=== PATIENT | female | born 1960 | race Hispanic/Latino ===

== ENCOUNTER 2016-12-03 15:30 | Emergency (ER) | payer OTHER, BC ==
[2016-12-03 16:00] VITALS: BP 154/88; PULSE 98; RESP 18; TEMP 98.2; O2SAT 96
[2016-12-03 16:01] VITALS: BMI 28.3
--- NOTE | 2016-12-03 16:34 | ED PDOC ---
Arrival/HPI - General Chief Complaint: Abnormal Skin Integrity Time Seen by Provider: 12/03/16 16:30 Historian: Patient - History of Present Illness Narrative History of Present Illness (Text): 12/03/16 16:30 This 56 yo female presents to this ED c/o left facial rash x 2 days. Patient noted a tingling / burning sensation prior onset of rash. Denies vision changes or other complains. Time/Duration: Other (2 days) Context: Home Past Medical History - Provider Review Nursing Documentation Reviewed: Yes - Infectious Disease Hx of Infectious Diseases: None - Cardiac Hx Cardiac Disorders: No - Pulmonary Hx Respiratory Disorders: No - Neurological Hx Neurological Disorder: No - HEENT Hx HEENT Disorder: No - Renal Hx Renal Disorder: No - Endocrine/Metabolic Hx Endocrine Disorders: Yes Hx Diabetes Mellitus Type 2: Yes - Hematological/Oncological Hx Blood Disorders: Yes Hx Cancer: Yes (colon) - Integumentary Hx Dermatological Disorder: Yes Other/Comment: RIGHT GROIN SKIN LESION GRANULOMA - Musculoskeletal/Rheumatological Hx Musculoskeletal Disorders: No - Gastrointestinal Hx Gastrointestinal Disorders: No - Genitourinary/Gynecological Hx Genitourinary Disorders: No - Psychiatric Hx Psychophysiologic Disorder: No Hx Substance Use: No - Surgical History Hx Hysterectomy: Yes Other/Comment: Colon Resection 6 yrs - Anesthesia Hx Anesthesia: No Family/Social History - Physician Review Nursing Documentation Reviewed: Yes Family/Social History: No Known Family HX Smoking Status: Never Smoked Hx Alcohol Use: No Hx Substance Use: No Allergies/Home Meds Allergies/Adverse Reactions: Allergies latex Allergy (Verified 12/03/16 16:05) RASH Home Medications: Home Meds Medication Instructions Recorded Confirmed Glimepiride 2 mg PO BID 07/06/15 12/03/16 Metformin HCl [Glucophage] 1 gm PO BID 07/06/15 12/03/16 Valsartan [Diovan] 160 mg PO DAILY 07/06/15 12/03/16 Review of Systems - Review of Systems Constitutional: Normal. absent: Fatigue, Weight Change, Fevers Eyes: Normal ENT: Normal Respiratory: Normal Cardiovascular: Normal Gastrointestinal: Normal Genitourinary Female: Normal Musculoskeletal: Normal Skin: Rash, Other (see HPI) Neurological: Normal Endocrine: Normal Hemo/Lymphatic: Normal Psychiatric: Normal Physical Exam Vital Signs Temp Pulse Resp BP Pulse Ox 12/03/16 16:00 98.2 F 98 H 18 154/88 H 96 Temperature: Afebrile Blood Pressure: Normal Pulse: Regular Respiratory Rate: Normal Appearance: Positive for: Well-Appearing, Non-Toxic, Comfortable Pain Distress: None Mental Status: Positive for: Alert and Oriented X 3 - Systems Exam Head: Present: Atraumatic, Normocephalic, Other ((+) vesicular rash observed left temporal area from scapl to lateral temp of face. Eyes are not involved. Rash is vesicualr) Pupils: Present: PERRL, Other (no dendritic lesion) Extroacular Muscles: Present: EOMI. No: Entrapment Conjunctiva: Present: Normal Ears: Present: Normal, NORMAL TM, Normal Canal. No: Erythema, TM Bulging, TM Perf Mouth: Present: Moist Mucous Membranes, Normal Lips, Normal Tounge, Normal Teeth. No: Drooling, Trismus Pharnyx: Present: Normal. No: ERYTHEMA, EXUDATE, TONSILS ENLARGED Nose (External): Present: Atraumatic, Other (No leija's sign). No: Lesions Nose (Internal): Present: Normal Inspection Neck: Present: Normal Range of Motion. No: Meningeal Signs, MIDLINE TENDERNESS Respiratory/Chest: Present: Clear to Auscultation, Good Air Exchange. No: Respiratory Distress, Accessory Muscle Use Cardiovascular: Present: Regular Rate and Rhythm, Normal S1, S2. No: Murmurs Abdomen: Present: Normal Bowel Sounds. No: Tenderness, Distention, Peritoneal Signs Back: Present: Normal Inspection. No: CVA Tenderness Upper Extremity: Present: Normal Inspection, Normal ROM, NORMAL PULSES, Neurovascularly Intact, Capillary Refill < 2s. No: Cyanosis, Edema Lower Extremity: Present: Normal Inspection, Normal ROM, Neurovascularly Intact , Capillary Refill < 2 s. No: Edema Neurological: Present: GCS=15, CN II-XII Intact, Speech Normal, Motor Func Grossly Intact, Normal Sensory Function, Normal Cerebellar Funct, Gait Normal Skin: Present: Warm, Dry, Normal Color. No: Rashes Psychiatric: Present: Alert, Oriented x 3 Medical Decision Making ED Course and Treatment: 12/03/16 16:50 Dr. Pan ED physician came to see patient. He agrees with plan. 12/03/16 17:00 Patient denies vision changes, or eye pain. Patient was recommended to f/u legal advisor tomorrow, and to return to ED if symptoms worsen. Re-evaluation Time: 16:58 Reassessment Condition: Re-examined, Improved - Medication Orders Current Medication Orders: Discontinued Medications Valacyclovir HCl (Valtrex) 1 gm PO STAT STA PRN Reason: Protocol Stop: 12/03/16 16:37 Last Admin: 12/03/16 16:46 Dose: 1 gm Disposition/Present on Arrival - Present on Arrival Any Indicators Present on Arrival: No History of DVT/PE: No History of Uncontrolled Diabetes: No Urinary Catheter: No History of Decub. Ulcer: No History Surgical Site Infection Following: None - Disposition Have Diagnosis and Disposition been Completed?: Yes Diagnosis: Herpes zoster Disposition: HOME/ ROUTINE Disposition Time: 16:59 Patient Plan: Discharge Condition: GOOD Discharge Instructions (ExitCare): Shingles (ED) Additional Instructions: Call private doctor for follow up visit in 1-2 days. Also call legal advisor for revaluation in 1-2 days. Take medication with food. Return to emergency if symptoms worsen Prescriptions: oxyCODONE/Acetaminophen [Percocet 5/325 mg Tab] 1 ea PO TID PRN #12 tab PRN Reason: Pain, Severe (8-10) Valacyclovir HCl [Valtrex] 1 gm PO Q8H #21 tablet Referrals: Deya Lucia MD [Primary Care Provider] - Follow up with primary Jamshid Austin MD [Staff Provider] - Follow up with primary Forms: [facility] (Khmer), WORK NOTE
== END 2016-12-03 17:10 | disposition home or self-care (01) ==
LOC: ED 15:30
DX: B02.9 Zoster without complications (principal)

== ENCOUNTER 2017-08-14 10:55 | Day surgery (SDC) | payer OTHER, BC ==
[2017-08-07 10:46] VITALS: BMI 28.6
[2017-08-14 11:35] LABS: EOS # 1.3 (0.0-0.7); EOS % 2.9 % (1.5-5.0); HEMOGLOBIN 11.1 g/dL (12.0-16.0); LYMPH # 2.1 (1.2-3.4); LYMPH % 4.7 % (22.0-35.0); MEAN CORPUSCULAR HEMOGLOBIN 32.1 pg (25.0-35.0); MEAN CORPUSCULAR HGB CONC 32.7 g/dl (31.0-37.0); MEAN PLATELET VOLUME 10.1 fl (7.0-11.0); MONO # 1.9 (0.1-0.6); MONO % 4.3 % (1.0-6.0); PLATELET COUNT 526 10^3/uL (120.0-450.0); RBC 3.46 10^6/uL (3.5-6.1); RED CELL DISTRIBUTION WIDTH 14.3 % (11.5-14.5)
[2017-08-14 11:40] LABS: WHITE BLOOD COUNT 45.4 10^3/ul (4.5-11.0)
[2017-08-14 11:42] LABS: BLOOD UREA NITROGEN 27 mg/dL (7-21); CALCIUM 10.7 mg/dL (8.4-10.5); GFR AFRICAN-AMERICAN > 60; GFR NON-AFRICAN AMERICAN > 60
[2017-08-14 11:43] LABS: INR 0.99 (0.93-1.08); PARTIAL THROMBOPLASTIN TIME 28.9 Seconds (25.1-36.5); PROTHROMBIN TIME 11.4 SECONDS (9.4-12.5)
[2017-08-14 12:25] LABS: ATYPICAL LYMPHOCYTE 2 % (0.0-0.0); BAND 5 % (0-2); BASOPHIL 2 % (0.0-1.0); EOSINOPHIL 5 % (0.0-3.0); LYMPHOCYTE 5 % (22.0-35.0); METAMYELOCYTE 2 %; MONOCYTE 7 % (1.0-6.0); NEUTROPHIL 67 % (50.0-70.0)
[2017-08-14 12:26] LABS: MYELOCYTE 5 %
[2017-08-14] MEDS ORDERED: Midazolam 2 MG/2 ML VIAL ONE (14:00)
[2017-08-14] MEDS ORDERED: Lidocaine 1% Inj (20ml) ONE (14:00)
[2017-08-14] MEDS ORDERED: Oxycodone/Acetaminophen 5/325 mg Tab PO PRN (15:39)
[2017-08-14] MEDS ORDERED: Sodium Chloride 0.45% 1,000 ML IV SCH (15:45)
[2017-08-14 16:42] VITALS: BP 118/66; PULSE 91; RESP 18; TEMP 98.3; O2SAT 97
--- NOTE | 2017-08-14 20:29 | CT ---
PROCEDURE: CT guided bone marrow aspiration and biopsy. HISTORY: Recently diagnosed CML. Needs bone marrow biopsy and aspiration PHYSICIAN(S): Ronni Wilcox MD. TECHNIQUE: The relative risks and indications of the procedure were explained to the patient and consent obtained. The patient was placed prone on the CT scanner and preliminary images through the pelvis obtained. Conscious sedation and monitoring were provided throughout the procedure by a nurse. The right posterior superior iliac spine was selected for biopsy. The areas prepped and draped usual sterile fashion. 1 percent xylocaine was used to anesthetize the skin and soft tissues. And on control needle was advanced to the right posterior superior iliac spine. Its position was confirmed with CT. The needle was advanced to the cortex and an aspiration performed. Next a long core biopsy was obtained with the on control needle. Slides were prepared by Dr. Powers. IMPRESSION: 1. CT-guided bone marrow aspiration and biopsy as described above.
== END 2017-08-14 17:33 | disposition home or self-care (01) ==
LOC: SDS 10:55
PROVIDERS: ATTEND Radiology Vascular & Interventional Radiology
DX: C92.10 Chronic myeloid leukemia, BCR/ABL-positive, not having achieved remission (principal)
CPT/HCPCS: 36415; 38221; 80048; 85025; 85610; 85730; J2250; J2405; J3010; J7030

== ENCOUNTER 2018-05-28 16:21 | Outpatient (CLI) | payer OTHER, BC | END 2018-05-28 16:22 | disposition home or self-care (01) | LOC: LAB 16:21 ==

== ENCOUNTER 2018-06-27 17:48 | Outpatient (CLI) | payer OTHER, BC | END 2018-06-27 17:49 | disposition home or self-care (01) | LOC: OPLAB 17:48 ==

== ENCOUNTER 2018-08-01 17:06 | Outpatient (CLI) | payer OTHER, BC | END 2018-08-01 17:07 | disposition home or self-care (01) | LOC: OPLAB 17:06 ==

== ENCOUNTER 2018-08-20 19:55 | Emergency (ER) | payer OTHER, BC ==
[2018-08-20 20:06] VITALS: BMI 29.1
[2018-08-20 20:07] VITALS: TEMP 98.7
[2018-08-20] MEDS ORDERED: Sodium Chloride 0.9% 1,000 ML IV STA (20:53)
[2018-08-20] MEDS ORDERED: Morphine 4 mg/ml ISec IVP STA (20:55)
[2018-08-20 21:34] LABS: BASO # 0.03 K/mm3 (0.0-2.0); BASO % 0.5 % (0.0-3.0); EOS # 0.5 (0.0-0.7); EOS % 8.1 % (1.5-5.0); HEMOGLOBIN 11.9 g/dL (12.0-16.0); LYMPH # 1.5 (1.2-3.4); MEAN CELL VOLUME 99.2 fl (80.0-105.0); MEAN CORPUSCULAR HEMOGLOBIN 31.8 pg (25.0-35.0); MEAN CORPUSCULAR HGB CONC 32.1 g/dl (31.0-37.0); MEAN PLATELET VOLUME 9.2 fl (7.0-11.0); MONO # 0.5 (0.1-0.6); MONO % 8.5 % (1.0-6.0); RBC 3.74 10^6/uL (3.5-6.1); RED CELL DISTRIBUTION WIDTH 12.9 % (11.5-14.5); WHITE BLOOD COUNT 5.7 10^3/uL (4.5-11.0)
[2018-08-20 21:36] LABS: PH,URINE 6.5 (4.7-8.0); URINE BILIRUBIN NEGATIVE (NEGATIVE); URINE BLOOD NEGATIVE (NEGATIVE); URINE GLUCOSE (UA) NEGATIVE (NEGATIVE); URINE LEUKOCYTE ESTERASE NEGATIVE Leu/uL (NEGATIVE); URINE PROTEIN NEGATIVE mg/dL (<30 mg/dL); URINE UROBILINOGEN 0.2 E.U./dL (<1 E.U./dL)
[2018-08-20 21:38] LABS: URINE APPEARANCE CLEAR (CLEAR); URINE COLOR LIGHT YELLOW (YELLOW)
[2018-08-20 21:41] LABS: INR 1.04; PARTIAL THROMBOPLASTIN TIME 34.1 Seconds (26.9-38.3); PROTHROMBIN TIME 11.5 SECONDS (9.4-12.5)
[2018-08-20 21:45] LABS: ALB/GLOB RATIO 1.2 (1.1-1.8); ALBUMIN 4.4 g/dL (3.0-4.8); ALT/SGPT 26 U/L (7-56); AST/SGOT 42 U/L (14-36); BLOOD UREA NITROGEN 21 mg/dL (7-21); CALCIUM 10.2 mg/dL (8.4-10.5); GFR NON-AFRICAN AMERICAN 57
--- NOTE | 2018-08-20 22:01 | ED PDOC ---
Arrival/HPI <Lul Crenshaw - Last Filed: 08/20/18 22:29> - History of Present Illness Narrative History of Present Illness (Text): 08/20/18 20:53 A 58 year old female, whose past medical history includes diabetes, hypertension, and kidney stones, presents to the emergency department complaining of right flank pain radiating to right groin since a few days ago. Patient reports she had kidney stones a few years ago and is currently getting chemo therapy for CML. Patient states she follows up with Dr. Dave. Patient denies any fever, chills, nausea, vomiting, urinary output changes, belly pain, or any other complaints. PMD: Dr. Lucia Improvement Auditor: Dr. Dave Time/Duration: Other (a few days ago) Symptom Onset: Gradual Symptom Course: Unchanged Activities at Onset: Light Context: Home <Ines Romeo PA-C - Last Filed: 08/21/18 00:56> - General Chief Complaint: Back Pain Time Seen by Provider: 08/20/18 19:58 Past Medical History - Provider Review Nursing Documentation Reviewed: Yes - Infectious Disease Hx of Infectious Diseases: None - Cardiac Hx Cardiac Disorders: Yes Hx Hypertension: Yes - Pulmonary Hx Respiratory Disorders: No - Neurological Hx Paralysis: No - HEENT Hx HEENT Disorder: Yes Hx Cataracts: Yes (RIGHT EYE CATARACT(HAD SX BUT DOESNT SEE WELL)) - Renal Hx Renal Disorder: No - Endocrine/Metabolic Hx Diabetes Mellitus Type 2: Yes - Hematological/Oncological Hx Blood Disorders: Yes Hx Blood Transfusions: Yes Hx Blood Transfusion Reaction: Yes (2 UNITS 9 YRS AGO) Hx Leukemia: Yes (2018) - Integumentary Hx Dermatological Disorder: Yes Other/Comment: RIGHT GROIN SKIN LESION GRANULOMA - Musculoskeletal/Rheumatological Hx Musculoskeletal Disorders: No - Gastrointestinal Hx Gastrointestinal Disorders: Yes Other/Comment: HX. COLON CANCER S/P COLECTOMY - Genitourinary/Gynecological Hx Genitourinary Disorders: Yes Other/Comment: JACKIE - Psychiatric Hx Emotional Abuse: No Hx Physical Abuse: No Hx Substance Use: No - Surgical History Hx Cataract Extraction: Yes (RIGHT EYE BUT NEEDS 2ND SURGERY PER PT) Hx Hysterectomy: Yes Other/Comment: Colon Resection - Anesthesia Hx Anesthesia Reactions: No Hx Malignant Hyperthermia: No - Suicidal Assessment Feels Threatened In Home Enviroment: No <Ines Romeo PA-C - Last Filed: 08/21/18 00:56> Family/Social History - Physician Review Nursing Documentation Reviewed: Yes Family/Social History: No Known Family HX Smoking Status: Never Smoked Hx Alcohol Use: No (WEEKENDS) Hx Substance Use: No <Ines Romeo PA-C - Last Filed: 08/21/18 00:56> Allergies/Home Meds <Lul Crenshaw - Last Filed: 08/20/18 22:29> <Ines Romeo PA-C - Last Filed: 08/21/18 00:56> Allergies/Adverse Reactions: Allergies latex Allergy (Severe, Verified 08/20/18 20:06) RASH Home Medications: Home Meds Medication Instructions Recorded Confirmed Glimepiride 4 mg PO BID 07/06/15 08/20/18 Metformin HCl [Glucophage] 1 gm PO BID 07/06/15 08/20/18 Multivitamin/Iron/Folic Acid 1 tab PO DAILY 08/09/17 08/20/18 [Centrum Adults Tablet] Losartan/Hydrochlorothiazide 1 tab PO DAILY 08/20/18 08/20/18 [Losartan-Hctz 100-25 mg Tab] Review of Systems - Physician Review All systems were reviewed & negative as marked: Yes - Review of Systems Constitutional: absent: Fevers, Other (chills) Gastrointestinal: Abdominal Pain (right flank pain radiating to right groin; no belly pain). absent: Nausea, Vomiting Genitourinary Female: absent: Urine Output Changes <Ines Romeo PA-C - Last Filed: 08/21/18 00:56> Physical Exam Vital Signs Temp Pulse Resp BP Pulse Ox 08/20/18 20:06 98.7 F 92 H 18 192/103 H 100 <Lul Crenshaw - Last Filed: 08/20/18 22:29> Vital Signs Reviewed: Yes Vital Signs Temp Pulse Resp BP Pulse Ox 08/20/18 20:06 98.7 F 92 H 18 192/103 H 100 Temperature: Afebrile Blood Pressure: Hypertensive Pulse: Tachycardic Respiratory Rate: Normal Appearance: Positive for: Well-Appearing, Non-Toxic, Comfortable Mental Status: Positive for: Alert and Oriented X 3 - Systems Exam Head: Present: Atraumatic, Normocephalic Pupils: Present: PERRL Extroacular Muscles: Present: EOMI Conjunctiva: Present: Normal Mouth: Present: Moist Mucous Membranes Neck: Present: Normal Range of Motion Respiratory/Chest: Present: Clear to Auscultation, Good Air Exchange. No: Respiratory Distress, Accessory Muscle Use Cardiovascular: Present: Regular Rate and Rhythm, Normal S1, S2. No: Murmurs Abdomen: No: Tenderness, Distention, Peritoneal Signs, Rebound, Guarding Back: Present: Normal Inspection, CVA Tenderness (mild right CVA tenderness) Upper Extremity: Present: Normal Inspection. No: Cyanosis, Edema Lower Extremity: Present: Normal Inspection. No: Edema Neurological: Present: GCS=15, CN II-XII Intact, Speech Normal, Motor Func Grossly Intact, Normal Sensory Function, Gait Normal Skin: Present: Warm, Dry, Normal Color. No: Rashes Psychiatric: Present: Alert, Oriented x 3, Normal Insight, Normal Concentration <Ines Romeo PA-C - Last Filed: 08/21/18 00:56> Medical Decision Making - Lab Interpretations Lab Results: PT 11.5 SECONDS (9.4-12.5) 08/20/18 21:20 INR 1.04 08/20/18 21:20 APTT 34.1 Seconds (26.9-38.3) 08/20/18 21:20 Total Bilirubin 0.3 mg/dL (0.2-1.3) 08/20/18 21:20 AST 42 U/L (14-36) H 08/20/18 21:20 ALT 26 U/L (7-56) 08/20/18 21:20 Alkaline Phosphatase 125 U/L (38-126) 08/20/18 21:20 Total Protein 8.2 g/dL (5.8-8.3) 08/20/18 21:20 Albumin 4.4 g/dL (3.0-4.8) 08/20/18 21:20 Globulin 3.8 gm/dL 08/20/18 21:20 Albumin/Globulin Ratio 1.2 (1.1-1.8) 08/20/18 21:20 Urine Color Light yellow (YELLOW) 08/20/18 21:20 Urine Appearance Clear (CLEAR) 08/20/18 21:20 Urine pH 6.5 (4.7-8.0) 08/20/18 21:20 Ur Specific [place] <= 1.005 (1.005-1.035) 08/20/18 21:20 Urine Protein Negative mg/dL (<30 mg/dL) 08/20/18 21:20 Urine Glucose (UA) Negative mg/dL (NEGATIVE) 08/20/18 21:20 Urine Ketones Negative mg/dL (NEGATIVE) 08/20/18 21:20 Urine Blood Negative (NEGATIVE) 08/20/18 21:20 Urine Nitrate Negative (NEGATIVE) 08/20/18 21:20 Urine Bilirubin Negative (NEGATIVE) 08/20/18 21:20 Urine Urobilinogen 0.2 E.U./dL (<1 E.U./dL) 08/20/18 21:20 Ur Leukocyte Esterase Negative [place]/uL (NEGATIVE) 08/20/18 21:20 - RAD Interpretation Radiology Orders: 08/20/18 20:59 ABDOMEN & PELVIS [ABD & PELVIS W/O PO OR IV CONT] [CT] Stat - Medication Orders Current Medication Orders: Sodium Chloride (Sodium Chloride 0.9%) 1,000 mls @ 500 mls/hr IV .Q2H STA Stop: 08/20/18 22:52 Last Admin: 08/20/18 21:42 Dose: 500 mls/hr eMAR Start Stop Document 08/20/18 21:42 CD (Rec: 08/20/18 21:43 [facility] Intravenous Solution Start Date 08/20/18 Start Time 21:42 End Date 08/20/18 End time 23:42 Total Infusion Time 120 Discontinued Medications Morphine Sulfate (Morphine) 4 mg IVP STAT STA Stop: 08/20/18 20:56 Last Admin: 08/20/18 21:34 Dose: 4 mg MAR Pain Assessment Document 08/20/18 21:34 CD (Rec: 08/20/18 21:35 CD [facility]) Pain Reassessment Is this a pain reassessment? No Sleep Is patient sleeping during reassessment? No Presence of Pain Presence of Pain Yes Pain Scale Used Protocol: PSCALES Pain Scale Used Numeric Location Pain Location Body Site Back Description Intensity of Pain at present 6 Pain Behavior Irritability IVP Administration Document 08/20/18 21:34 CD (Rec: 08/20/18 21:35 CD [facility]) Charges for Administration # of IVP Administrations 1 Ondansetron HCl (Zofran Inj) 4 mg IVP STAT STA Stop: 08/20/18 20:54 Last Admin: 08/20/18 21:34 Dose: 4 mg IVP Administration Document 08/20/18 21:34 CD (Rec: 08/20/18 21:34 CD [id number]) Charges for Administration # of IVP Administrations 1 <Lul Crenshaw - Last Filed: 08/20/18 22:29> ED Course and Treatment: 08/20/18 20:53 Impression: 58 year old female presenting to the emergency room complaining of right flank pain. Plan: -- CT of abdomen and pelvis -- Morphine -- Zofran -- IV fluids -- Urine culture -- Reassess and disposition Prior Visits: Notes and results from previous visits were reviewed. Progress Notes: 08/20/18 20:[address] Dave who agrees with current plan and wants to rule out kidney stones. Labs results d/w the patient, she is still pending CT. 08/20/18 23:45 On reevaluation, patient reports improvement of symptoms, denies any nausea. On exam, patient remains awake alert and oriented 3 in no acute distress. Abdomen soft and nontender. CT results d/w the patient, advised that she does not have a stone in the R urinary tract and duodenitis was seen on CT. Of note, patient's bp is still noted to be elevated at 188/93, she reports that she took her bp medication this AM. Given pepcid IV and clonidine PO. Otherwise the patient feels comfortable going home. She is smiling, is cheerful and in good spirits. Advised to follow up with Dr. Dave especially regarding her bp and CT results in 1-2 days without fail. Advised to take medication as prescribed. Return to the emergency room at any time for any new or worsening symptoms. Patient states she fully agrees with and understands discharge instructions. States that she agrees with the plan and disposition. Verbalized and repeated discharge instructions and plan. I have given the patient opportunity to ask any additional questions. - Lab Interpretations Lab Results: PT 11.5 SECONDS (9.4-12.5) 08/20/18 21:20 INR 1.04 08/20/18 21:20 APTT 34.1 Seconds (26.9-38.3) 08/20/18 21:20 Total Bilirubin 0.3 mg/dL (0.2-1.3) 08/20/18 21:20 AST 42 U/L (14-36) H 08/20/18 21:20 ALT 26 U/L (7-56) 08/20/18 21:20 Alkaline Phosphatase 125 U/L (38-126) 08/20/18 21:20 Total Protein 8.2 g/dL (5.8-8.3) 08/20/18 21:20 Albumin 4.4 g/dL (3.0-4.8) 08/20/18 21:20 Globulin 3.8 gm/dL 08/20/18 21:20 Albumin/Globulin Ratio 1.2 (1.1-1.8) 08/20/18 21:20 Urine Color Light yellow (YELLOW) 08/20/18 21:20 Urine Appearance Clear (CLEAR) 08/20/18 21:20 Urine pH 6.5 (4.7-8.0) 08/20/18 21:20 Ur Specific [place] <= 1.005 (1.005-1.035) 08/20/18 21:20 Urine Protein Negative mg/dL (<30 mg/dL) 08/20/18 21:20 Urine Glucose (UA) Negative mg/dL (NEGATIVE) 08/20/18 21:20 Urine Ketones Negative mg/dL (NEGATIVE) 08/20/18 21:20 Urine Blood Negative (NEGATIVE) 08/20/18 21:20 Urine Nitrate Negative (NEGATIVE) 08/20/18 21:20 Urine Bilirubin Negative (NEGATIVE) 08/20/18 21:20 Urine Urobilinogen 0.2 E.U./dL (<1 E.U./dL) 08/20/18 21:20 Ur Leukocyte Esterase Negative [place]dee/uL (NEGATIVE) 08/20/18 21:20 - RAD Interpretation Narrative RAD Interpretations (Text): 08/20/18 23:36 EXAM: CT Abdomen and Pelvis without IV contrast CLINICAL HISTORY: Pain TECHNIQUE: Axial computed tomography images of the abdomen and pelvis without intravenous contrast. 631.10 mGy-cm CONTRAST: Without COMPARISON: None provided. FINDINGS: LUNG BASES: The lung bases appear clear. No pleural effusions are seen. LIVER: Unremarkable. GALLBLADDER AND BILE DUCTS: Status post cholecystectomy. No biliary ductal dilatation is evident. PANCREAS: Unremarkable. SPLEEN: Unremarkable. ADRENAL GLANDS: Unremarkable. KIDNEYS, URETERS, AND BLADDER: The kidneys appear within normal limits. There is no hydronephrosis or hydroureter. A 3.2 mm non-obstructing calculus is seen in the lower left renal pole. The urinary bladder appeared normal in size and configuration. STOMACH AND BOWEL: Mucosal wall thickening of duodenum compatible with severe duodenitis. No evidence of bowel obstruction. No evidence suggesting colitis. APPENDIX: No evidence of acute appendicitis on CT examination. PERITONEUM: No free fluid. No free air. LYMPH NODES: No lymphadenopathy is evident. REPRODUCTIVE: Unremarkable as visualized. VASCULATURE: No evidence of abdominal aortic aneurysm. Moderate atherosclerotic vascular plaquing is present. BONES: No aggressive appearing osseous lesion. No acute osseous pathology evident. IMPRESSION: 1. Severe duodenitis. 2. 3.2 mm non-obstructing calculus in the lower left renal pole. Electronically signed on Aug 20, 2018 11:18:57 PM EDT by: Boyd Loza M.D., SVETA Certified By ABR & CBCCT Fellowship Trained MRI and CT Specialist Radiology Orders: 08/20/18 20:59 ABDOMEN & PELVIS [ABD & PELVIS W/O PO OR IV CONT] [CT] Stat Senior Packaging Engineer: Radiologist - Medication Orders Current Medication Orders: Sodium Chloride (Sodium Chloride 0.9%) 1,000 mls @ 500 mls/hr IV .Q2H STA Stop: 08/20/18 22:52 Last Admin: 08/20/18 21:42 Dose: 500 mls/hr eMAR Start Stop Document 08/20/18 21:42 CD (Rec: 08/20/18 21:43 CD [facility]) Intravenous Solution Start Date 08/20/18 Start Time 21:42 End Date 08/20/18 End time 23:42 Total Infusion Time 120 Discontinued Medications Morphine Sulfate (Morphine) 4 mg IVP STAT STA Stop: 08/20/18 20:56 Last Admin: 08/20/18 21:34 Dose: 4 mg MAR Pain Assessment Document 08/20/18 21:34 CD (Rec: 08/20/18 21:35 CD [facility]) Pain Reassessment Is this a pain reassessment? No Sleep Is patient sleeping during reassessment? No Presence of Pain Presence of Pain Yes Pain Scale Used Protocol: PSCALES Pain Scale Used Numeric Location Pain Location Body Site Back Description Intensity of Pain at present 6 Pain Behavior Irritability IVP Administration Document 08/20/18 21:34 CD (Rec: 08/20/18 21:35 CD [id number]) Charges for Administration # of IVP Administrations 1 Ondansetron HCl (Zofran Inj) 4 mg IVP STAT STA Stop: 08/20/18 20:54 Last Admin: 08/20/18 21:34 Dose: 4 mg IVP Administration Document 08/20/18 21:34 CD (Rec: 08/20/18 21:34 [facility] Charges for Administration # of IVP Administrations 1 <Ines Romeo PA-C - Last Filed: 08/21/18 00:56> - PA / CUPOLA WORKER / Resident Statement KELI has reviewed & agrees with the documentation as recorded. KELI has examined the patient and agrees with the treatment plan. <Lul Crenshaw - Last Filed: 08/20/18 22:29> - PA / CUPOLA WORKER / Resident Statement KELI has reviewed & agrees with the documentation as recorded. - Scribe Statement The provider has reviewed the documentation as recorded by the Scribterri Clemente All medical record entries made by the Scribe were at my direction and personally dictated by me. I have reviewed the chart and agree that the record accurately reflects my personal performance of the history, physical exam, medical decision making, and the department course for this patient. I have also personally directed, reviewed, and agree with the discharge instructions and disposition. <Ines Romeo PA-C - Last Filed: 08/21/18 00:56> Disposition/Present on Arrival <Lul Crenshaw - Last Filed: 08/20/18 22:29> - Present on Arrival Any Indicators Present on Arrival: No History of DVT/PE: No History of Uncontrolled Diabetes: No Urinary Catheter: No History of Decub. Ulcer: No History Surgical Site Infection Following: None - Disposition Have Diagnosis and Disposition been Completed?: Yes Disposition Time: 00:00 Patient Plan: Discharge <Ousmane VALLEInes MartinBrenden - Last Filed: 08/21/18 00:56> - Disposition Diagnosis: Flank pain, Duodenitis Disposition: HOME/ ROUTINE Condition: STABLE Discharge Instructions (ExitCare): Flank Pain, Peptic Ulcers (DC) Additional Instructions: Thank you for letting us take care of you today. You were treated for R flank pain, duodenitis. The emergency medical care you received today was directed at your acute symptoms. If you were prescribed any medication, please fill it and take as directed. It may take several days for your symptoms to resolve. Return to the Emergency Department if your symptoms worsen, do not improve, or if you have any other problems. Please contact your doctor in 2 days for re-evaluation and follow up. Bring any paperwork you were given at discharge with you along with any medications you are taking to your follow up visit. Our treatment cannot replace ongoing medical care by a primary care provider (PCP) outside of the emergency department. Thank you for allowing the [facility] team to be part of your care today. If you had a CT scan: A Radiologist will review the ED reading if any change in treatment is needed we will contact you. If you had a urine culture: It will take several days for the results, if any change in treatment is needed we will contact you. Prescriptions: Esomeprazole Magnesium [Nexium] 40 mg PO DAILY #30 ecc Referrals: Deya Lucia MD [Primary Care Provider] - Follow up with primary Forms: [employer] ([place]ese), WORK NOTE
[2018-08-20 23:38] VITALS: PULSE 80; RESP 17; O2SAT 98
[2018-08-21 00:09] VITALS: BP 188/93
--- NOTE | 2018-08-21 09:33 | CT ---
Date of service: 08/20/2018 PROCEDURE: CT Abdomen and Pelvis without intravenous contrast HISTORY: R flank pain, r/o stone COMPARISON: None. TECHNIQUE: Without contrast.. Contrast dose: Radiation dose: Total exam DLP = 631.1 mGy-cm. This CT exam was performed using one or more of the following dose reduction techniques: Automated exposure control, adjustment of the mA and/or kV according to patient size, and/or use of iterative reconstruction technique. FINDINGS: LOWER THORAX: Unremarkable. LIVER: Unremarkable. No gross lesion or ductal dilatation. GALLBLADDER AND BILE DUCTS: Unremarkable. PANCREAS: Unremarkable. No gross lesion or ductal dilatation. SPLEEN: Unremarkable. ADRENALS: Unremarkable. No mass. KIDNEYS AND URETERS: Unremarkable. No hydronephrosis. No solid mass. 3 mm nonobstructing stone in the lower pole of the left kidney VASCULATURE: Unremarkable. No aortic aneurysm. Aortic calcification BOWEL: Unremarkable. No obstruction. No gross mural thickening. APPENDIX: Unremarkable. Normal appendix. PERITONEUM: Unremarkable. No free fluid. No free air. LYMPH NODES: Unremarkable. No enlarged lymph nodes. BLADDER: Unremarkable. REPRODUCTIVE: Unremarkable. BONES: No acute fracture. OTHER FINDINGS: The report concurs with the preliminary [facility] report IMPRESSION: Unremarkable non contrast enhanced CT of the abdomen and pelvis.
== END 2018-08-21 00:11 | disposition home or self-care (01) ==
LOC: ED 19:55
DX: K29.80 Duodenitis without bleeding (principal); I10 Essential (primary) hypertension; E11.9 Type 2 diabetes mellitus without complications; Z85.038 Personal history of other malignant neoplasm of large intestine
CPT/HCPCS: 74176; 80053; 81003; 85025; 85610; 85730; 87086; 96361; 96374; 96375; 99283; J2270; J2405; J7040

== ENCOUNTER 2018-08-22 16:44 | Outpatient (CLI) | payer OTHER, BC | END 2018-08-22 16:45 | disposition home or self-care (01) | LOC: OPLAB 16:44 ==

== ENCOUNTER → 2018-08-27 | Outpatient (CLI) | payer OTHER, BC | LOC: RAD 16:29 ==

== ENCOUNTER 2018-09-16 18:06 | Outpatient (CLI) | payer OTHER, BC | END 2018-09-16 18:07 | disposition home or self-care (01) | LOC: LAB 18:06 ==